=== PATIENT | female | born 1985 | race Caucasian/White ===

== ENCOUNTER 2018-01-27 14:48 | Inpatient (IN) | payer OTHER ==
[~2018-01-27] VITALS: Ht 172.7 cm; Wt 73.9 kg
[2018-01-27 15:35] LABS: ABSOLUTE BASOPHIL COUNT 0 /CUMM (0.0-0.2); ABSOLUTE EOSINOPHIL COUNT 0 /CUMM (0.0-0.7); ABSOLUTE GRANULOCYTE CT 10.7 /CUMM (1.4-6.5); ABSOLUTE LYMPH COUNT 2.2 /CUMM (1.2-3.4); ABSOLUTE MONOCYTE COUNT 0.4 /CUMM (0.10-0.60); BASOPHIL % 0.1 % (0.0-2.0); EOSINOPHIL % 0.2 % (0-5); HEMATOCRIT 42.2 % (37-47); MEAN CORPUSCULAR HGB 34.3 PG (27.0-31.0); MEAN CORPUSCULAR HGB CONC 34.4 G/DL (33.0-37.0); MEAN CORPUSCULAR VOLUME 99.9 FL (81.0-99.0); MEAN PLATELET VOLUME 9.7 FL (7.4-10.4); PLATELET COUNT 204 /CUMM (130-400); RED BLOOD CELL CT 4.22 /CUMM (4.20-5.40); WHITE BLOOD CELL COUNT 13.3 /CUMM (4.8-10.8)
[2018-01-27 15:49] VITALS: BP 119/72
[2018-01-27] MEDS ORDERED: PRENATAL VITAM1 EACH (17:52)
--- NOTE | 2018-01-27 18:06 | History & Physical Pre-Op ---
General Information and HPI MD Statement: I have seen and personally examined SUKI OVALLE and documented this H&P. The patient is a 32 year old F who presented with a patient stated chief complaint of rupture of membranes []. History of Present Illness: A 2-year-old 3 para 200-36 weeks and 09/04 who presents to my office for a third visit patient had had some leaking of fluid on and she had been [place] [facility] and decided to come to the office. She has been a little bit down on her lock and has lost her job therefore lost her insurance and stop coming from care despite our constant suggestions that she continue care. Patient denies fever she denies contractions she denies headache or visual changes she does complain of edema and leakage of fluid she was seen in the childbirth Center after the office and we did a amnio sure which was positive for rupture of membranes plan was just made for section Allergies/Medications Allergies: Coded Allergies: No Known Allergies (01/27/18) Home Med list Vit W-Ca,Fe,FA(<1 MG) ( Vitamins) 1 EACH TABLET 1 TAB DAILY (Reported) Past History Surgical History Pertinent Surgical History: Past Family/Social History Psychosocial History Smoking Status: Former Smoker Review of Systems Review of Systems: U 13 point review of systems as stated in the HPI Exam & Diagnostic Data Last 24 Hrs of Vital Signs/I&O Vital Signs Date Time Temp Pulse Resp B/P B/P Pulse O2 O2 Flow FiO2 Mean Ox Delivery Rate 01/27 1549 119/72 Intake & Output 01/27 1600 01/27 0800 01/27 0000 Intake Total Output Total Balance Patient 163 lb Weight Physical Exam: Pleasant white female HEENT anicteric Lungs clear Heart S1 and S2 Abdomen soft estimated weight 3 Extremities +1 edema Negative Homansgrams Assessment/Plan Assessment/Plan: Assessment on a 36 week with limited care 2 previous section ruptured membranes unknown GBS status plan is for ampicillin a section and antibiotics both ampicillin and Ancef As Ranked By This Provider Problem List: 1.
[2018-01-28 09:40] LABS: ABSOLUTE BASOPHIL COUNT 0 /CUMM (0.0-0.2); ABSOLUTE EOSINOPHIL COUNT 0 /CUMM (0.0-0.7); ABSOLUTE GRANULOCYTE CT 14.4 /CUMM (1.4-6.5); ABSOLUTE MONOCYTE COUNT 0.5 /CUMM (0.10-0.60); BASOPHIL % 0.2 % (0.0-2.0); EOSINOPHIL % 0 % (0-5); GRANULOCYTE % 84.9 % (42.2-75.2); MEAN CORPUSCULAR HGB 34.5 PG (27.0-31.0); MEAN CORPUSCULAR HGB CONC 33.9 G/DL (33.0-37.0); MEAN CORPUSCULAR VOLUME 101.7 FL (81.0-99.0); PLATELET COUNT 198 /CUMM (130-400); RED BLOOD CELL CT 3.53 /CUMM (4.20-5.40)
[2018-01-28 09:48] LABS: HEMATOCRIT 35.9 % (37-47)
--- NOTE | 2018-01-28 10:54 | Operative Report ---
Operative/Inv Procedure Report Surgery Date: 01/27/18 Name of Procedure: Repeat low flap transverse section via Pfannenstiel skin incision Pre-Operative Diagnosis: Her 6 week ruptured membranes 2 previous sections Post-Operative Diagnosis: Same labor Estimated Blood Loss: 500 Surgeon/Oil Burner Servicer And Installer: Kartik ESPITIA,Carrol Aguilarand peggy Anesthesia: block Operative/Procedure Note Note: Procedure note patient was taken the operating room placed prone position after adequate anesthesia patient placed in dorsolithotomy position the vagina from dorsal fashion bladder was catheterized admission under anesthesia performed at this point Rubio was placed into the bladder sterilely patient was returned spine position the abdomen was prepped and draped so fashion skin testing was found to be adequate for surgery timeout was performed at this point on the skin was cut through an old Pfannenstiel skin incision carried down to rectus fascia was cut in curvilinear fashion I direction peritoneal cavity was entered high into the abdomen patient tolerated that well at this point low bladed [place] was placed and lower and incision a bladder flap was developed in the lower uterine segment the uterus is nicked entered with the back of knife dissected bluntly as well as sharply on since removed from the field infant was delivered over the abdominal wall after cord had been reduced around the baby's body 1 close up clamped and cut was handed transmission mechanic was waiting delivering to aid in resuscitation placenta was delivered manually noted to be intact was wiped clean with 2 wet dry last insurance free of her membranes was oversewn running locking suture intravenous Pitocin as well as intramyometrial Pitocin was used to aid in uterine contractility which was apparent on the uses turned to abdominal cavity the abdomen was irrigated copious amounts warm saline until clear incision was checked for hemostasis and found to be hemostatic at this point the wrist i.e. RI STA was applied to the uterine incision once removed from the abdomen on the peritoneum was reapproximated 0 fascia was reapproximated to continue sutures #1 stitch skin was reapproximated using андрей after Bovie coagulation subcutaneous tissue patient tolerated that well patient was transported to the recovery room with a sterile bandage with clear urine and her infant Findings: Normal tubes and ovaries bilaterally otherwise normal anatomy viable male infant
--- NOTE | 2018-01-28 10:56 | PN- Post Delivery/GYN ---
Subjective Subjective: Positive flatus enjoyed breakfast Objective Last 24 Hrs of Vital Signs/I&O Vital Signs Date Time Temp Pulse Resp B/P B/P Pulse O2 O2 Flow FiO2 Mean Ox Delivery Rate 01/27 1549 119/72 Physical Exam: Pale white female HEENT anicteric Lungs clear Abdomen soft distention Fundus firm nontender Incision clean dry and intact Extremities +2 edema negative Homans Assessment/Plan Assessment/Plan Assessment status post repeat low flap transverse section for rupture membranes 36 weeks plan is for a continued care check CB C advanced diet advance ambulation
[2018-01-29] MEDS ORDERED: PERCOCET 5-3251 EACH PO (10:53)
[2018-01-29] MEDS ORDERED: IBUPROFEN800 M1 PO (10:53)
--- NOTE | 2018-01-29 11:02 | PN- Post Delivery/GYN ---
Subjective Subjective: Wants control No complaints not breast-feeding Objective Last 24 Hrs of Vital Signs/I&O Vital signs stable Physical Exam: Pleasant white female HEENT anicteric Lungs clear Heart S1 and S2 Abdomen soft nontender Incision clean dry and intact Extremities negative edema edema negative Homans Lochia minimal Fundus firm nontender Assessment/Plan Assessment/Plan Assessment status post repeat section plan is for discharge in a.m. after social service assistant consult and Depo-Provera shot
== END 2018-01-30 15:03 | DRG 540 ==
LOC: CBCO 14:48 → GNO 15:14
PROVIDERS: Specialist
PROC: 10D00Z1 Extraction of Products of Conception, Low, Open Approach (ICD-10-PCS; principal; 2018-01-27)
DX: O34.211 Maternal care for low transverse scar from previous cesarean delivery (principal); N85.8 Other specified noninflammatory disorders of uterus; Z3A.36 36 weeks gestation of pregnancy; Z37.0 Single live birth
CPT/HCPCS: GNOP; GNOS; 36415; 80307; 81001; 84112; 87086; 87389; J0290; J0690; J1050; J1650; J1885; J7120